=== PATIENT | female | born 1990 | race Caucasian/White ===

== ENCOUNTER 2022-04-29 07:59 | Outpatient (CLI) | payer BC, SELFPAY ==
--- NOTE | 2022-04-29 08:15 | CRLHL7_ITS ---
For Patients: As a result of the Century Cures Act, medical imaging exams and procedure reports are released immediately into your electronic medical record. You may view this report before your referring provider. If you have questions, please contact your health care provider. INDICATION: First trimester scan, establish dates. COMPARISON: None. TECHNIQUE: Real-time oconnell-scale imaging of the pelvis was performed. FINDINGS: Sonographic imaging demonstrates a single living intrauterine gestation. The embryo demonstrates a low cardiac rate measuring 91 beats per minute. The embryo`s crown-rump length measurement of 0.6 cm corresponds to a gestational age of 6 weeks 3 days with a sonographic due date of 12/20/2022. There is a yolk sac measuring 6 millimeters. There is an inferior perigestational hemorrhage measuring 1.6 x 0.5 x 0.7 cm. Corpus luteal cyst right ovary. Left ovary normal. Moderate pelvic free fluid. IMPRESSION: Single living intrauterine with a decreased heart rate of 91 beats per minute, possibly related to very early gestational age of 6 weeks 3 days and sonographic due date 12/20/2022. Yolk sac measures 6 millimeters. Follow-up in 11-14 days recommended. Inferior subchorionic hemorrhage measuring 1.6 x 0.5 x 0.7 cm. Dictated by Ahsan Yang MD @ 04/29/2022 10:12:25 AM (Electronically Signed)
== END 2022-04-29 08:00 | disposition home or self-care (01) ==
LOC: US 08:00
PROVIDERS: Visit Provider Advanced Practice Midwife
DX: Z34.91 Encounter for supervision of normal pregnancy, unspecified, first trimester (principal); O20.9 Hemorrhage in early pregnancy, unspecified; Z3A.01 Less than 8 weeks gestation of pregnancy
CPT/HCPCS: 76817; 86592; 86703; 86762; 86787; 86803; 86850; 86900; 86901; 87086; 87340

== ENCOUNTER 2022-05-13 15:49 | Outpatient (CLI) | payer BC, SELFPAY ==
--- NOTE | 2022-05-13 16:00 | CRLHL7_ITS ---
For Patients: As a result of the Century Cures Act, medical imaging exams and procedure reports are released immediately into your electronic medical record. You may view this report before your referring provider. If you have questions, please contact your health care provider. INDICATION: follow up dating and viability low FHR COMPARISON: 04/29/2022 TECHNIQUE: Real-time oconnell-scale imaging of the pelvis was performed. FINDINGS: pole is no longer visualized. 2.8 millimeter yolk sac noted. Internal echoes are present within the gestational sac. Mean sac diameter 2.9 cm corresponding to an 8 week 0 day gestation. IMPRESSION: Nonviable gestation. pole no longer present. Dictated by Ahsan Yang MD @ 05/14/2022 12:43:27 PM (Electronically Signed)
== END 2022-05-13 15:50 | disposition home or self-care (01) ==
LOC: US 15:49
PROVIDERS: Visit Provider Advanced Practice Midwife
DX: Z34.91 Encounter for supervision of normal pregnancy, unspecified, first trimester (principal); O02.1 Missed abortion
CPT/HCPCS: 76817

== ENCOUNTER 2022-05-16 12:13 | Outpatient (CLI) | payer BC, SELFPAY | END 2022-05-16 12:14 | disposition home or self-care (01) | LOC: NFLDREF 12:14 | PROVIDERS: Visit Provider Physician Assistant | DX: O03.9 Complete or unspecified spontaneous abortion without complication (principal) | CPT/HCPCS: 84702 ==

== ENCOUNTER 2022-05-24 16:33 | Day surgery (SDC) | payer BC, SELFPAY ==
[2022-05-24] VITALS (34 sets, daily range): BP systolic 66–117; BP diastolic 34–80; PULSE 70–102; RESP 12–20; TEMP 36.2–36.8; O2SAT 97–100; BMI 28.3
[2022-05-24] MEDS: 0.9 % SODIUM CHLORIDE 1000 ml 1,000 ML IV ×2 (17:55→18:20)
[2022-05-24 18:01] LABS: Basophils Percent Auto 0.2 % (0.0-3.0); Eosinophils Percent Auto 0.3 % (0.0-7.0); Hematocrit 34.1 % (33.0-51.0); Hemoglobin* 11.2 gm/dL (12.0-16.0); Immature Granulocytes Pct Auto 0.3 %; Lymphocytes Percent Auto 13.4 % (20-44); Mean Corpuscular HGB Conc 33 gm/dL (32-36); Mean Corpuscular Hemoglobin 29 pg (26-34); Mean Corpuscular Volume 88 fL (80-100); Monocytes Percent Auto 4.3 % (0.0-11.0); Neutrophils Percent Auto 81.5 % (42.0-72.0); Platelet Count* 276 K/uL (140-440); Red Blood Count 3.87 m/uL (4.00-5.20)
[2022-05-24 18:02] LABS: Slide Review Reflex No
--- NOTE | 2022-05-24 18:10 | ED_ITS ---
HPI - General Adult General Date Seen: 05/24/22 Chief complaint: Vaginal Bleeding Stated complaint: Excessive Bleeding Post-Miscarriage,Blacking Out Time Seen by Provider: 05/24/22 16:37 Source: patient and old records reviewed History of Present Illness HPI narrative: Patient is a 31-year-old G4, with 1 child and 2 previous miscarriages, currently here with bleeding during her 3rd miscarriage. She was seen on May 13 in clinic, at that time was about 8 weeks . She had an ultrasound which confirmed intrauterine but loss of pole. She had only a yolk sac at that time and was told that she had suffered a miscarriage. She was not really having any symptoms at that time. They discussed options at that time including D and C, expectant management, or medical management, and according to the office visit note, she and her did not make a decision that day. She tells me that after talking about it they decided on medical management. The pills were prescribed her but she decided to wait until after Thanksgiving to take them. Up to that point, she said she had had a little bit of brown spotting but otherwise no symptoms. Yesterday, she took the mifepristone, and did not note any effects. Today she took the misoprostol at around 9:00 a.m., and says that she started to have fairly heavy bleeding after that. She says that she was going to the bathroom every 15-20 minutes or so and was bleeding clots. She was changing her pad every 15-20 minutes but she says mostly because she was just in the bathroom, not because it was saturated. However, she says within an hour or she would saturate a pad. By this afternoon, she called her because she was feeling faint, she said that she had had a couple of episodes of feeling like she passed out. Her notes that he was walking her to the bathroom and she felt faint, had several minutes where she said that things look black. She denies any abdominal pain or cramping. She has not had any fainting resulting in injuries. She has not had any fevers, vomiting. She has had 1 go to term, denies any history of complications with that . She did have a D&C with a previous miscarriage, because she opted for that option, not because of complications with bleeding, retained products, infection or other problems. She does not take any blood thinners. She no longer smokes, denies heavy alcohol use. Here today with her . Related Data Home Medications Medication Instructions Recorded Confirmed No Known Home Medications 05/24/22 05/24/22 Allergies Allergy/AdvReac Type Severity Reaction Status Date / Time No Known Drug Allergies Allergy Verified 05/13/22 16:25 Review of Systems Status of ROS: Reports: 10 or more systems reviewed and unremarkable except as noted in History and below PFSH PFS Medical History No significant past medical history Surgical History H/O dilation and curettage History of parotidectomy [place] teeth removed Family History Father High blood pressure Brother Anxiety and depression Social History Narrative: SOCIAL Education: bachelors in [employer] 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 Partner: Rayshawn Jeana REESE JOVAN Lives with: and daughter Pets: dog Abuse: Denies past/present Special Diet: Denies Ok with a blood transfusion: yes Culture or muslim beliefs: denies Are you following a diet prescribed by a doctor: No Are you following a special diet: No Highest level of school completed/degree received: Bachelor's degree Physical activity type: walking Physical activity type details: lots of walking at work and with her toddler How many days of moderate to strenuous exercise, like a brisk walk, did you do in the last 7 days: 5 Smoking Status: Never smoker Second hand tobacco smoke exposure: No Non-prescribed substance use: denies use Caffeine: Yes (up to 1 cup or pop per day) Little interest or pleasure in doing things: several days Feeling down, depressed, or hopeless: not at all Exam Narrative: Exam Narrative: Vital signs as noted above. In general, an alert, nontoxic woman. Looks comfortable. Head: Normocephalic, atraumatic. Eyes: Pupils are equal reactive. Extraocular movements are full. Conjunctivae are normal. ENT: Mucous membranes are moist. Throat is normal. Neck: Supple without lymphadenopathy. Heart: Regular rate and rhythm. No murmur or rub. Lungs: Clear bilaterally. No increased work of breathing, crackles or wheezes. Abdomen: Soft and nontender. No organomegaly. : I did attempt to do a speculum exam. She had significant clot and liquid blood in the vaginal vault. I removed about a half cup of clot and suctioned out about 60 mL of liquid blood. I was not able to visualize the cervix as by the time I suctioned out blood, repositioned the speculum, there was enough liquid blood in the vault that the area was difficult to visualize again. Extremities: Well perfused. No edema. No calf tenderness. Pulses intact. Neurologic: Patient is alert and oriented to person and place. Speech is fluent. Face is symmetric. Moves all extremities equally. Affect: Normal. Skin: Warm and dry. Well perfused. She does not look significantly pale. Const: Vital Signs, click to edit/add: Vital Signs - 24 hr 05/24/22 16:40 05/24/22 17:57 05/24/22 17:58 Temperature 97.1 F L Pulse Rate 87 86 Pulse Rate [Left P ulse Oximeter] 97 Respiratory Rate 20 Blood Pressure 76/41 L Blood Pressure [Ri ght Upper Arm] 108/67 Pulse Oximetry 100 100 100 Oxygen Delivery Me od Room Air 05/24/22 18:00 05/24/22 18:01 05/24/22 18:02 Temperature Pulse Rate 86 76 85 Pulse Rate [Left P ulse Oximeter] Respiratory Rate Blood Pressure 95/51 L 91/52 L Blood Pressure [Ri ght Upper Arm] Pulse Oximetry 100 100 100 Oxygen Delivery Me thod 05/24/22 18:15 05/24/22 18:21 05/24/22 18:30 Temperature Pulse Rate 85 95 86 Pulse Rate [Left P ulse Oximeter] Respiratory Rate Blood Pressure 99/59 L 101/80 Blood Pressure [Ri ght Upper Arm] Pulse Oximetry 100 100 100 Oxygen Delivery Me thod 05/24/22 18:31 05/24/22 18:36 05/24/22 18:37 Temperature Pulse Rate 86 101 H 102 H Pulse Rate [Left P ulse Oximeter] Respiratory Rate Blood Pressure 89/64 L 113/58 L Blood Pressure [Ri ght Upper Arm] Pulse Oximetry 100 99 100 Oxygen Delivery Me thod 05/24/22 18:42 05/24/22 18:51 05/24/22 18:43 Temperature 97.7 F Pulse Rate 99 91 Pulse Rate [Left P ulse Oximeter] Respiratory Rate Blood Pressure 106/67 Blood Pressure [Ri ght Upper Arm] Pulse Oximetry 100 100 Oxygen Delivery Me thod 05/24/22 18:52 05/24/22 19:00 05/24/22 19:10 Temperature 97.7 F Pulse Rate 92 92 Pulse Rate [Left P ulse Oximeter] 97 Respiratory Rate 20 Blood Pressure 106/70 Blood Pressure [Ri ght Upper Arm] 108/67 Pulse Oximetry 100 100 Oxygen Delivery Me thod Documenting provider has reviewed patient's vital signs: yes Course Course Hospital Course: Following initial evaluation, I did try to look with the ultrasound here to see if I could see anything with a transabdominal ultrasound. However her bladder is not at all full, and it is very difficult to even visualize the uterus let alone see details. I did review her records, reviewed the ultrasound from mid April when intrauterine was confirmed. She had a beta hCG drawn on May 16 and still had an hCG of 92,000, but this is not terribly surprising given that she still had products of conception in the uterus at that time. She had an IV placed and a L of normal saline hung. I ordered labs including a CBC, coags, and a type and screen initially. After my exam, I called and talked with Dr. Farah, who was on-call for OB Gyne. We reviewed her case, at that time she had stable vital signs, and the we decided to offer her either a D&C immediately verses consideration of an ultrasound to determine whether not she still had products of conception in the uterus, which would necessitate a D and C, verses having already passed products of conception, in which case we could consider further medical management. I did discuss both of these options at length with the patient and her , and they were having difficulty making a decision. They asked for further time to discuss it by themselves. However, in the meantime, she did have an episode of hypotension, where her blood pressure dropped briefly I am told into the 60s systolic. No reported change in her pulse rate. I asked that a 2nd IV be placed and a 2 L of normal saline be hung. Her blood pressure did come up fairly quickly back into the 90s. Her hemoglobin came back at 11, although her white blood cell count also came back at 17.5. She does have a left shift of 81.5% neutrophils. INR came back at 1.13, PTT is 27 seconds. Added on additional labs at that point, including a lactate, CRP, basic metabolic panel, LFTs. Normal she is not febrile, does not have any abdominal pain, clinical suspicion is fairly low for this being sepsis verses hypotension related to blood loss. I did give her Transexemic Acid, 1000 mg. We of course at that time recommended D&C, to which she agreed. Dr. Farah will come in right away to perform that procedure. Reevaluation(s) Reevaluation #1: Patient improved hemodynamically, blood pressure was 106 systolic at my last check. She is feeling improved. Lactate was mildly elevated at 2.1, CRP was less than 0.05. Suspicion for sepsis remains low, in the absence of fever abdominal pain, I would doubt endometritis. Headed to the OR with Dr. Farah, further care per her instructions. Vital Signs Vital signs: Initial Vital Signs Temperature 97.1 F L 05/24/22 16:40 Temperature Source Temporal Artery Scan 05/24/22 16:40 Pulse Rate 97 05/24/22 16:40 Respiratory Rate 20 05/24/22 16:40 Blood Pressure 108/67 05/24/22 16:40 Blood Pressure Mean 80 05/24/22 16:40 Blood Pressure Position Sitting 05/24/22 16:40 Pulse Oximetry 100 05/24/22 16:40 Oxygen Delivery Method 05/24/22 16:40 Vital Signs Temperature 97.1 F L 05/24/22 16:40 Pulse Rate 97 05/24/22 16:40 Respiratory Rate 20 05/24/22 16:40 Blood Pressure 108/67 05/24/22 16:40 Pulse Oximetry 100 05/24/22 16:40 Oxygen Delivery Method 05/24/22 16:40 Temperature 97.7 F 05/24/22 19:10 Pulse Rate 97 05/24/22 19:10 Respiratory Rate 20 05/24/22 19:10 Blood Pressure 108/67 05/24/22 19:10 Pulse Oximetry 100 05/24/22 19:00 Oxygen Delivery Method 05/24/22 16:40 Medical Decision Making Lab Data Labs: Lab Results 05/24/22 05/24/22 05/24/22 Range/Units 17:54 17:54 17:54 WBC 17.50 H (4.50-11.00) K/uL RBC 3.87 L (4.00-5.20) m/uL Hgb 11.2 L (12.0-16.0) gm/dL Hct 34.1 (33.0-51.0) % MCV 88 (80-100) fL MCH 29 (26-34) pg MCHC 33 (32-36) gm/dL RDW Coeff of Dhaval 13.0 (11.5-15.5) % Plt Count 276 (140-440) K/uL Neut % (Auto) 81.5 H (42.0-72.0) % Lymph % (Auto) 13.4 L (20-44) % [place] % (Auto) 4.3 (0.0-11.0) % Eos % (Auto) 0.3 (0.0-7.0) % Baso % (Auto) 0.2 (0.0-3.0) % Neut # (Auto) 14.30 H (1.7-7.0) K/uL Lymph # (Auto) 2.30 (0.90-2.90) K/uL [place] # (Auto) 0.80 (0.00-0.90) K/UL Eos # (Auto) 0.10 (0.00-0.50) K/uL Baso # (Auto) 0.00 (0.00-0.30) K/uL Abs Immat Gran (auto) 0.10 (0.00-0.30) K/uL Imm/Tot Granulo (auto) 0.3 % INR 1.13 H (0.91-1.10) APTT 27 (23-33) Seconds Sodium (135-149) mmol/L Potassium (3.6-5.1) mmol/L Chloride (96-114) mmol/L Carbon Dioxide (20-32) mmol/L BUN (5-24) mg/dL Creatinine (0.5-1.5) mg/dL Estimated Creat Clear Estimated GFR ml/min Glucose (60-115) mg/dL Lactate (0.5-1.9) mmol/L Calcium (8.4-10.6) mg/dL Total Bilirubin (0.1-1.5) mg/dL Direct Bilirubin (0.0-0.5) mg/dL AST (12-35) U/L ALT (4-35) U/L Alkaline Phosphatase (40-150) U/L C-Reactive Protein (0.5-1.0) mg/dL Total Protein (6.0-8.3) g/dL Albumin (3.3-5.0) g/dL Blood Type O Positive Antibody Screen NEGATIVE 05/24/22 05/24/22 Range/Units 17:54 17:54 WBC (4.50-11.00) K/uL RBC (4.00-5.20) m/uL Hgb (12.0-16.0) gm/dL Hct (33.0-51.0) % MCV (80-100) fL MCH (26-34) pg MCHC (32-36) gm/dL RDW Coeff of Dhavla (11.5-15.5) % Plt Count (140-440) K/uL Neut % (Auto) (42.0-72.0) % Lymph % (Auto) (20-44) % [place] % (Auto) (0.0-11.0) % Eos % (Auto) (0.0-7.0) % Baso % (Auto) (0.0-3.0) % Neut # (Auto) (1.7-7.0) K/uL Lymph # (Auto) (0.90-2.90) K/uL [place] # (Auto) (0.00-0.90) K/UL Eos # (Auto) (0.00-0.50) K/uL Baso # (Auto) (0.00-0.30) K/uL Abs Immat Gran (auto) (0.00-0.30) K/uL Imm/Tot Granulo (auto) % INR (0.91-1.10) APTT (23-33) Seconds Sodium 132 L (135-149) mmol/L Potassium 4.0 (3.6-5.1) mmol/L Chloride 103 (96-114) mmol/L Carbon Dioxide 22 (20-32) mmol/L BUN 9 (5-24) mg/dL Creatinine 0.6 (0.5-1.5) mg/dL Estimated Creat Clear 114.44 Estimated GFR 125 ml/min Glucose 120 H (60-115) mg/dL Lactate 2.1 H (0.5-1.9) mmol/L Calcium 8.5 (8.4-10.6) mg/dL Total Bilirubin 0.4 (0.1-1.5) mg/dL Direct Bilirubin 0.1 (0.0-0.5) mg/dL AST 39 H (12-35) U/L ALT 17 (4-35) U/L Alkaline Phosphatase 44 (40-150) U/L C-Reactive Protein < 0.5 L (0.5-1.0) mg/dL Total Protein 6.4 (6.0-8.3) g/dL Albumin 4.0 (3.3-5.0) g/dL Blood Type Antibody Screen Discharge Plan Discharge Clinical Impression: Vaginal bleeding, Missed with demise before 20 completed weeks of gestation Patient Disposition: Admitted As Inpatient Condition: Stable
[2022-05-24] MEDS: TRANEXAMIC ACID 100 MG/ML INJ 1000 MG IV (18:20)
[2022-05-24 18:22] LABS: INR 1.13 (0.91-1.10); Partial Thromboplastin Time* 27 Seconds (23-33); Prothrombin Time 15.2 Seconds
[2022-05-24 18:26] LABS: Lactate* 2.1 mmol/L (0.5-1.9)
[2022-05-24 18:30] LABS: Chloride* 103 mmol/L (96-114)
[2022-05-24 18:31] LABS: Sodium* 132 mmol/L (135-149)
[2022-05-24 18:34] LABS: Alkaline Phosphatase* 44 U/L (40-150); Aspartate Amino Transferase* 39 U/L (12-35); Bilirubin Direct* 0.1 mg/dL (0.0-0.5); Bilirubin Total* 0.4 mg/dL (0.1-1.5); Carbon Dioxide* 22 mmol/L (20-32); Creatinine* 0.6 mg/dL (0.5-1.5); Est. Creatinine Clearance* 114.44; Estimated Glomerular Filt Rate 125 ml/min; Total Protein* 6.4 g/dL (6.0-8.3)
[2022-05-24 18:35] LABS: Alanine Aminotransferase* 17 U/L (4-35); Blood Urea Nitrogen* 9 mg/dL (5-24); Calcium* 8.5 mg/dL (8.4-10.6); Glucose* 120 mg/dL (60-115)
--- NOTE | 2022-05-24 18:38 | ED.NURSE ---
Anesthesia at bedside. 2nd liter of IVF infusing, as well as TXA infusion. [address] Warm blankets provided.
[2022-05-24 18:39] LABS: C Reactive Protein* < 0.5 mg/dL (0.5-1.0)
[2022-05-24] MEDS: LACTATED RINGERS 1000 ML 1,000 ML 100 ML IV (19:08)
--- NOTE | 2022-05-24 19:10 | ED.NURSE ---
Pt to OR
[2022-05-24] MEDS: CEFAZOLIN 2 GM INJ IVP (19:18)
[2022-05-24] MEDS: BUPIVACAINE 0.25% 30 ML 10 ML INJECTION (19:20)
--- NOTE | 2022-05-24 19:50 | W.ANESCHARGE ---
Anesthesia Charges Start Date/Time Anesthesia Start Date: 05/24/22 Anesthesia Start Time: 19:08 Stop Date/Time Anesthesia Stop Date: 05/24/22 Anesthesia Stop Time: 19:47 Summary Emergency: Yes
--- NOTE | 2022-05-24 19:50 | PM.GYNCN1 ---
NATURAL RESOURCE SPECIALIST - CN: HPI Data of Consult Date Seen: 05/24/22 Patient: [facility] Patient Consult date: 05/24/22 Requesting Physician: Marielle Farah MD Primary Care Provider: Not a Local Provider Consult Narrative Reason for consult: other (Heavy vaginal bleeding, known missed treated medically) Narrative: Chio Jimenez is a 31 year old female who presented to the emergency department with heavy vaginal bleeding since 9:00 a.m. this morning. The patient is a 5 para 1021. She had been seen for an initial obstetric visit on 04/29/2022. An ultrasound performed on that day demonstrated an intrauterine gestation about 10 days behind last menstrual period dating, with a heart rate of 91 beats per minute, and a crown-rump length consistent with 6 weeks 3 days. A follow-up ultrasound was done 2 weeks later on 05/13/2022. At that time, the gestational sac and yolk sac were still visualized, consistent with an 8 week 0 day gestation, however there was no longer any evidence of a pole. Diagnosis of missed was made. The patient was counseled as to her options in the clinic, and ultimately elected to proceed with medical management. She was prescribed mifeptristone and misoprostol. She took the mifepristone yesterday, and the misoprostol this morning as directed. She subsequently began experiencing heavy bleeding and passage of clots. She also reports that she passed out multiple times at home, describing not being able to see in needing to crawl because she was so out of it, symptoms which seem to resolve within 2-3 minutes. She denies significant abdominal pain or cramping. She is having no fevers or chills. She had an episode of hypotension within the emergency department, though otherwise is been hemodynamically stable. 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 Partner: Rayshawn ALDANA Lives with: and daughter Pets: dog Abuse: Denies past/present Special Diet: Denies Ok with a blood transfusion: yes Culture or congregation beliefs: denies Are you following a diet prescribed by a doctor: No Are you following a special diet: No Highest level of school completed/degree received: Bachelor's degree Physical activity type: walking Physical activity type details: lots of walking at work and with her toddler How many days of moderate to strenuous exercise, like a brisk walk, did you do in the last 7 days: 5 Smoking Status: Never smoker Second hand tobacco smoke exposure: No Non-prescribed substance use: denies use Caffeine: Yes (up to 1 cup or pop per day) Little interest or pleasure in doing things: several days Feeling down, depressed, or hopeless: not at all History 5 Elective abortions 0 Para 1 Spontaneous abortions 2 Hx # Term Pregnancies 1 Ectopic pregnancies 0 Hx # Pregnancies 0 Multiple births 0 Number of Living Children 1 Past Pregnancies Del. Date GA/Weeks Outcome Route wt Inf Gender Labor Lgth Anesthesia Location Provider Compli 12/09/20 40 live - full term vaginal delivery 6 lb 10 oz Female 7 hours epidural [facility] Home Medications and Allergies Home Medications Medication Instructions Recorded Confirmed Type No Known Home Medications 05/24/22 05/24/22 History Home Medication Comments: Took mifeprsitone and misoprostol yesterday and today as noted above. Allergies Allergy/AdvReac Type Severity Reaction Status Date / Time No Known Drug Allergies Allergy Verified 05/13/22 16:25 NATURAL RESOURCE SPECIALIST - Exam Physical Exam: Vital signs: Temp Pulse Resp BP Pulse Ox O2 Del Method 97.7 F 97 20 108/67 100 05/24/22 19:10 05/24/22 19:10 05/24/22 19:10 05/24/22 19:10 05/24/22 19:00 05/24/22 16:40 Narrative: VITAL SIGNS: As noted above. GENERAL APPEARANCE: Alert, cooperative white female in no acute distress, lying in the supine position. MOOD & AFFECT: Normal, mildly anxious. ABDOMEN: Soft, non-distended and nontender. : Normal external female anatomy. Bartholin's and [place]'s glands are normal. No vulvar rashes, lesions, or ulcerations. Blood noted on the perineum. On speculum exam, there was a moderate amount of blood and clot vagina. Cervix visually open approximately 1 cm. EXTREMITIES: Nonedematous. Well perfused. Nontender. NATURAL RESOURCE SPECIALIST - Results Labs Labs: Short CBC 05/24/22 Range/Units 17:54 WBC 17.50 H (4.50-11.00) K/uL Hgb 11.2 L (12.0-16.0) gm/dL Hct 34.1 (33.0-51.0) % Plt Count 276 (140-440) K/uL BMP 05/24/22 17:54 Sodium 132 L Potassium 4.0 Chloride 103 Carbon Dioxide 22 BUN 9 Creatinine 0.6 Glucose 120 H Calcium 8.5 Liver Function 05/24/22 Range/Units 17:54 Total Bilirubin 0.4 (0.1-1.5) mg/dL Direct Bilirubin 0.1 (0.0-0.5) mg/dL AST 39 H (12-35) U/L ALT 17 (4-35) U/L Alkaline Phosphatase 44 (40-150) U/L Albumin 4.0 (3.3-5.0) g/dL Imaging OB US: Attestation: I have reviewed the pertinent imaging results. (Ultrasound results from 04/29/2022 and 05/13/2022.) My impression: Nonviable , no evidence of pole on the 2nd ultrasound. Radiologist's impression: Nonviable , no evidence of pole on the 2nd ultrasound. Assessment and Plan Assessment and plan (1) Vaginal bleeding: Status: Acute (2) Missed with demise before 20 completed weeks of gestation: Status: Acute Plan The patient has been bleeding profusely since 9:00 a.m. this morning, and based on her symptoms, is in danger of hemodynamic instability and acute blood loss anemia. I would recommend surgical management. The relative risks and benefits of suction curettage were reviewed with the patient. Informed consent for the procedure, suction curettage, was obtained. The patient had some food a couple of hours ago, so the DRYING MACHINE TENDER has recommended a spinal anesthesia rather than full sedation for the procedure. The patient and I discussed postoperative pain management with [id number] analgesics as needed, and follow-up next week as scheduled. I would recommend that products of conception tissue that a removed be sent to the laboratory for pathology evaluation and cytogenetics, as this is her 3rd loss. I anticipate that she will be able to be discharged following the procedure today. Her questions were answered to the best my ability.
--- NOTE | 2022-05-24 20:43 | P.GYNPRC_ITS ---
Procedure Note Date Seen: 05/24/22 Procedure Details: PREOPERATIVE DIAGNOSIS: 1. Missed . 2. Heavy persistent vaginal bleeding. POSTOPERATIVE DIAGNOSIS: 1. Missed . 2. Heavy persistent vaginal bleeding. PROCEDURE: Suction curettage. SURGEON: Sofi. ANESTHESIA: Spinal. COMPLICATIONS: None. ESTIMATED BLOOD LOSS: 80 mL. FINDINGS: Moderate amount of blood and clots in the vagina. Moderate amount of products of conception within the uterus. PROCEDURE NOTE: After obtaining informed consent, the patient was taken to the operating room where spinal anesthesia was obtained without difficulty. She was prepared and draped in the normal, sterile fashion in the dorsal lithotomy po sition. Two g of IV Ancef was administered intravenously. An examination was performed under anesthesia which demonstrated a normal sized anteverted uterus. An open-sided bivalve speculum was placed into the vagina, clots and blood removed and the cervix easily visualized. The anterior lip of the cervix was grasped with a single-tooth tenaculum for traction. A paracervical block was administered using a total of 10 mL 0.25% Marcaine, plain. A sound was gently inserted through the cervical os into the uterus to the level of the fundus. Sound length was 8 cm. The cervix was noted to already be passively dilated to 10 mm. A 10 mm rigid, curved suction cannula was advanced through the cervical os into the uterine cavity. Gentle suction was applied, and the uterine lining gently curetted. A moderate amount of products of conception and blood was removed. The suction cannula was removed. The uterine lining was gently explored using a sharp curette, and a gritty feel was felt throughout. One final pass was made with the suction cannula, no further tissue was recovered. All instruments were then removed. The patient tolerated the procedure well. Sponge, lap, and needle counts were reported as correct x2. The patient was taken to the recovery room awake and in stable condition. PATHOLOGY SPECIMEN(S): Products of conception sent in saline.
== END 2022-05-24 22:30 | disposition home or self-care (01) ==
LOC: ED 19:17 → SS 19:21 → OB 20:30
PROVIDERS: Emergency Provider Emergency Medicine; Visit Provider Obstetrics & Gynecology
PROC: (CPT 59820; principal; 2022-05-24 19:00)
DX: O02.1 Missed abortion (principal); O08.1 Delayed or excessive hemorrhage following ectopic and molar pregnancy; I95.9 Hypotension, unspecified; D62 Acute posthemorrhagic anemia; Z3A.09 9 weeks gestation of pregnancy
CPT/HCPCS: 59820; 01965; 36415; 80048; 80076; 83605; 85025; 85610; 85730; 86140; 86850; 86900; 86901; 88233; 88262; 88305; 93005; 99140; 99285; J0690; J1100; J2250; J2370; J2400; J2405; J2704; J3010; J3490; J7030; J7120

== ENCOUNTER 2022-05-26 13:27 | Outpatient (CLI) | payer BC, SELFPAY ==
[2022-05-26 15:04] LABS: INR 0.95 (0.91-1.10); Prothrombin Time 13.2 Seconds
[2022-05-26 15:05] LABS: Partial Thromboplastin Time* 28 Seconds (23-33)
[2022-05-29 04:00] LABS: Cardiolipin Antibody IgA <10 APL (<=11); Cardiolipin Antibody IgG <10 GPL (<=14); Cardiolipin Antibody IgM 14 MPL (<=12)
[2022-05-29 16:49] LABS: B2Glycoprotein 1, IgG Antibody <10 SGU (<=20); B2Glycoprotein 1, IgM Antibody <10 SMU (<=20)
[2022-05-30 18:15] LABS: Prothrombin Time 12.7 sec (12.0-15.5); dRVVT Screen 32 sec (33-44)
== END 2022-05-26 13:28 | disposition home or self-care (01) ==
PROVIDERS: Visit Provider Physician Assistant
DX: N96 Recurrent pregnancy loss (principal)
CPT/HCPCS: 84443; 85610; 85613; 85730; 86146; 86147

== ENCOUNTER 2022-08-25 07:54 | Outpatient (CLI) | payer OTHER, SELFPAY ==
[2022-08-25 09:51] LABS: HCG Quantitative* 104.72 mIU/mL
[2022-08-28 02:47] LABS: Progesterone, HPLC-MS/MS 18.19 ng/mL
== END 2022-08-25 07:55 | disposition home or self-care (01) ==
PROVIDERS: Visit Provider Obstetrics & Gynecology
DX: N96 Recurrent pregnancy loss (principal)
CPT/HCPCS: 84144; 84702

== ENCOUNTER 2022-08-27 07:57 | Outpatient (CLI) | payer OTHER, SELFPAY | END 2022-08-27 07:58 | disposition home or self-care (01) | LOC: NFLDREF 09-04 11:46 | PROVIDERS: Visit Provider Obstetrics & Gynecology | DX: N96 Recurrent pregnancy loss (principal) | CPT/HCPCS: 84702 ==

== ENCOUNTER 2022-09-10 14:33 | Outpatient (CLI) | payer OTHER, SELFPAY ==
--- NOTE | 2022-09-10 14:41 | CRLHL7_ITS ---
For Patients: As a result of the Century Cures Act, medical imaging exams and procedure reports are released immediately into your electronic medical record. You may view this report before your referring provider. If you have questions, please contact your health care provider. INDICATION: First trimester scan, establish dates. COMPARISON: None. TECHNIQUE: Real-time oconnell-scale imaging of the pelvis was performed. FINDINGS: Small gestational sac within the endometrial canal is present with a mean sac diameter of 4.8 millimeters, 5 weeks 0 days. No pole or yolk sac. Corpus luteal cyst right ovary measuring 1.3 x 1.3 x 1.2 cm. No ectopic . The endometrium is heterogeneous with small cystic areas. No pelvic free fluid. Normal left ovary. Right ovary measures 2.7 x 1.6 x 2.6 cm and the left ovary measures 2.3 x 1.0 x 0.9 cm. IMPRESSION: Gestational sac appears to be present within the endometrial canal without pole or yolk sac, measuring 5 weeks 0 days. No ectopic. Dictated by Ahsan Yang MD @ 09/11/2022 10:03:50 AM (Electronically Signed)
== END 2022-09-10 14:34 | disposition home or self-care (01) ==
LOC: US 14:34
PROVIDERS: Visit Provider Obstetrics & Gynecology
DX: Z34.91 Encounter for supervision of normal pregnancy, unspecified, first trimester (principal); Z3A.01 Less than 8 weeks gestation of pregnancy
CPT/HCPCS: 76817

== ENCOUNTER 2022-09-10 15:46 | Outpatient (CLI) | payer SELFPAY | END 2022-09-10 15:47 | disposition home or self-care (01) | LOC: NFLDREF 15:50 | PROVIDERS: Visit Provider Obstetrics & Gynecology | DX: Z34.91 Encounter for supervision of normal pregnancy, unspecified, first trimester (principal) | CPT/HCPCS: 84702 ==

== ENCOUNTER 2022-09-12 14:30 | Outpatient (CLI) | payer OTHER, SELFPAY | END 2022-09-12 14:31 | disposition home or self-care (01) | LOC: NFLDREF 09-13 09:30 | PROVIDERS: Visit Provider Obstetrics & Gynecology | DX: O20.9 Hemorrhage in early pregnancy, unspecified (principal) | CPT/HCPCS: 84702 ==

== ENCOUNTER 2022-09-16 09:29 | Day surgery (SDC) | payer OTHER, SELFPAY ==
[2022-09-16 09:44] VITALS: BMI 28.0
[2022-09-16] MEDS: LACTATED RINGERS 1000 ML 1,000 ML 100 ML IV (10:00)
[2022-09-16] MEDS: SODIUM CHLORIDE 0.9 % (FLUSH) 10 ML SYRINGE IVF (10:00)
[2022-09-16 10:10] VITALS: BP 111/81; PULSE 69; RESP 16; TEMP 37.2; O2SAT 98
--- NOTE | 2022-09-16 10:11 | SUR.PREOP ---
HOME COVID NEGATIVE.
--- NOTE | 2022-09-16 10:47 | W.ANESCHARGE ---
Anesthesia Charges Start Date/Time Anesthesia Start Date: 09/16/22 Anesthesia Start Time: 11:12 Stop Date/Time Anesthesia Stop Date: 09/16/22 Anesthesia Stop Time: 11:56
[2022-09-16] MEDS: CEFAZOLIN 2 GM INJ IVP (11:22)
[2022-09-16] MEDS: BUPIVACAINE 0.25% 30 ML INJECTION (11:34)
[2022-09-16] MEDS: LIDOCAINE 1% MDV 20 ML INJECTION (11:34)
[2022-09-16 11:54] VITALS: BP 90/48; PULSE 64; RESP 14; TEMP 36.4; O2SAT 97
--- NOTE | 2022-09-16 11:55 | W.ANESCHARGE ---
Anesthesia Charges Start Date/Time Anesthesia Start Date: 09/16/22 Anesthesia Start Time: 11:12 Stop Date/Time Anesthesia Stop Date: 09/16/22 Anesthesia Stop Time: 11:56
[2022-09-16 12:00] VITALS: BP 93/50; PULSE 54; RESP 14; O2SAT 98
--- NOTE | 2022-09-16 12:00 | W.PM.GYNPROC ---
Procedure Note Date Seen: 09/16/22 Procedure Details: PREOPERATIVE DIAGNOSIS: 1. Missed in early first-trimester. 2. Recurrent early loss (x4) POSTOPERATIVE DIAGNOSIS: 1. Missed in early first-trimester. 2. Recurrent early loss (x4) NAME OF PROCEDURE: 1. Hysteroscopy. 2. D and C. SURGEON: Sofi. ANESTHESIA: Monitored anesthesia care and paracervical block. COMPLICATIONS: None.. ESTIMATED BLOOD LOSS: 5 mL. FINDINGS: Small amount of products of conception mostly detached from the endometrium, hanging on by a very thin stalk of tissue to the uterine fundus. Normal appearing uterine cavity. Normal appearing tubal ostia bilaterally. No evidence of uterine septum or submucosal fibroids. PATHOLOGY SPECIMENS: 1. Products of conception. PROCEDURE: After obtaining informed consent, the patient was taken to the operating room where she received monitored anesthesia care. She was prepared and draped in the normal sterile fashion, in the dorsal lithotomy position. An open-sided bivalve speculum was introduced into the vagina and the cervix visualized. The anterior lip of the cervix was grasped with a single-tooth tenaculum for traction. A paracervical block was then administered using a total of 20 mL of a 50/50 mixture of 0.25% Marcaine and 1% lidocaine plain. The uterus was gently sounded. Sound length was 7 cm. The cervix was already passively dilated to a #6 Hegar dilator. A hysteroscope was then advanced under direct visualization through the cervix into the uterine cavity. Sterile normal saline was used as distending medium. The uterine cavity was carefully inspected with the findings noted above. Pictures were taken for documentation purposes. The TruClear morcellator was inserted through the operating channel in the hysteroscope. The morcellator was used to remove the products of conception in its entirety. The hysteroscope was then removed. The endometrial lining was then gently curetted using a 7 mm rigid curved suction cannula, very little tissue was obtained. The hysteroscope was removed. The tenaculum was removed. There was little bleeding from the tenaculum site, which was controlled with direct pressure sponge stick, topical silver nitrate, and then electrocautery. All instruments were then removed. The patient tolerated the procedure well. Sponge, lap, needle, and instrument counts reported as correct x2. The patient was taken to the recovery room awake in a stable condition. She received 1 g of IV Ancef preoperatively and 30 mg IV Toradol at the conclusion of the procedure.
[2022-09-16 12:15] VITALS: BP 93/56; PULSE 54; RESP 14; O2SAT 98
[2022-09-16 12:30] VITALS: BP 105/78; PULSE 54; RESP 14; O2SAT 98
[2022-09-16 12:34] VITALS: BP 105/71; PULSE 60; RESP 16; O2SAT 98
== END 2022-09-16 12:36 | disposition home or self-care (01) ==
PROVIDERS: Visit Provider Obstetrics & Gynecology
PROC: 0UDB8ZZ Extraction of Endometrium, Via Natural or Artificial Opening Endoscopic (ICD-10-PCS; CPT 58558; principal; 2022-09-16 11:00)
DX: O02.1 Missed abortion (principal)
CPT/HCPCS: 59820; 00952; 81229; 88305; J0690; J1100; J1885; J2250; J2405; J2704; J3010; J3490; J7120